=== PATIENT | female | born 1975 ===

== ENCOUNTER 2017-08-01 10:30 | Emergency (ER) | payer OTHER ==
[2017-08-01 10:31] VITALS: BMI 21.9
[2017-08-01 10:44] VITALS: RESP 16; O2SAT 97
[2017-08-01] MEDS ORDERED: Sodium Chloride 0.9% 1,000 ML IV STA (11:06)
--- NOTE | 2017-08-01 11:31 | ED PDOC ---
Arrival/HPI - General Chief Complaint: Back Pain Time Seen by Provider: 08/01/17 11:02 Historian: Patient - History of Present Illness Narrative History of Present Illness (Text): 08/01/17 11:31 A 42 year old female presents to the emergency department complaining of 3 days history of left flank pain and subjective fever. Patient denies any vomiting, diarrhea, urinary symptoms, hematuria or any other complaints at this time. Time/Duration: Other (3 days) Symptom Onset: Sudden Symptom Course: Unchanged Activities at Onset: Rest Context: Home Past Medical History - Provider Review Nursing Documentation Reviewed: Yes - Infectious Disease Hx of Infectious Diseases: None - Psychiatric Hx Substance Use: No - Surgical History Hx Section: Yes Hx Tubal Ligation: Yes - Anesthesia Hx Anesthesia: Yes Hx Anesthesia Reactions: No Hx Malignant Hyperthermia: No Family/Social History - Physician Review Nursing Documentation Reviewed: Yes Family/Social History: No Known Family HX Smoking Status: Never Smoked Hx Alcohol Use: Yes Hx Substance Use: No Allergies/Home Meds Allergies/Adverse Reactions: Allergies No Known Allergies Allergy (Verified 08/01/17 10:44) Review of Systems - Physician Review All systems were reviewed & negative as marked: Yes - Review of Systems Constitutional: Fevers (subjective) Gastrointestinal: absent: Diarrhea, Vomiting Genitourinary Female: absent: Dysuria, Frequency, Hematuria Musculoskeletal: Other (left flank pain) Physical Exam Vital Signs Reviewed: Yes Vital Signs Temp Pulse Resp BP Pulse Ox 08/01/17 12:55 99.3 F 80 16 102/54 L 97 08/01/17 11:24 102.4 F H 08/01/17 10:42 99.6 F 100 H 16 107/63 97 Temperature: Afebrile Blood Pressure: Normal Pulse: Regular Respiratory Rate: Normal Appearance: Positive for: Well-Appearing, Non-Toxic, Comfortable Pain Distress: None Mental Status: Positive for: Alert and Oriented X 3 - Systems Exam Head: Present: Atraumatic, Normocephalic Pupils: Present: PERRL Extroacular Muscles: Present: EOMI Conjunctiva: Present: Normal Mouth: Present: Moist Mucous Membranes Neck: Present: Normal Range of Motion Respiratory/Chest: Present: Clear to Auscultation, Good Air Exchange. No: Respiratory Distress, Accessory Muscle Use Cardiovascular: Present: Regular Rate and Rhythm, Normal S1, S2. No: Murmurs Abdomen: Present: Normal Bowel Sounds. No: Tenderness, Distention, Peritoneal Signs Back: Present: Normal Inspection Upper Extremity: Present: Other (left flank tenderness). No: Cyanosis, Edema Lower Extremity: Present: Normal Inspection. No: Edema Neurological: Present: GCS=15, CN II-XII Intact, Speech Normal Skin: Present: Warm, Dry, Normal Color. No: Rashes Psychiatric: Present: Alert, Oriented x 3, Normal Insight, Normal Concentration Medical Decision Making ED Course and Treatment: 08/01/17 11:28 Impression: A 42 year old female with left flank pain. Plan: -- CT abd/pelvis -- labs -- Urinalysis -- IV fluids, Tylenol, Rocephin -- Reassess and disposition Prior Visits: Notes and results from previous visits were reviewed. Patient was last seen in the emergency department on 02/18/16 for evaluation of left sided lung pain. Progress Notes: 08/01/17 12:20 CT Abdomen and Pelvis without intravenous contrast Creator : Demetrius Patel MD IMPRESSION: Multiple bilateral nonobstructing renal calculi. No evidence of hydronephrosis or hydro ureter. No ureteral calculus. No other significant abnormality. Leaving Against Medical Advice (AMA): The patient is choosing to leave against medical advice. I have personally explained to the patient that choosing to do so may result in permanent bodily harm or . I have discussed at great length that without further evaluation and monitoring there may be unforeseen circumstances and/or deterioration causing permanent bodily harm or as a result of their choice. The patient is alert, oriented, and shows the mental capacity to make clear decisions regarding the patients health care at this time. The patient continues to wish to leave against medical advice. The patient has been advised that they should return to the emergency room immediately if they change their mind at any time, or if their condition begins to change or worsen in any way. 08/01/17 15:06 pt with sepsis, leukocytosis, non obstructing stones. requested pt to be admitted for iv antibiotics urology eval. pt refuses, states she "needs to go to work". advised of risk and worsening. - Lab Interpretations Lab Results: 08/01/17 11:30 08/01/17 11:30 Lab Results 08/01/17 11:30: Sodium 135, Potassium 4.2, Chloride 104, Carbon Dioxide 20 L, Anion Gap 15, BUN 11, Creatinine 0.9, Est GFR ( Amer) > 60, Est GFR (Non- Af Amer) > 60, Random Glucose 98, Calcium 8.8, Total Bilirubin 0.8, AST 23, ALT 31, Alkaline Phosphatase 125, Total Protein 7.3, Albumin 3.7, Globulin 3.6, Albumin/Globulin Ratio 1.1, Lipase 19 L 08/01/17 11:30: PT 14.8 H, INR 1.34 H, APTT 27.4 08/01/17 11:30: WBC 15.8 H, RBC 4.33, Hgb 12.2, Hct 35.6 L, MCV 82.2, MCH 28.2, MCHC 34.3, RDW 15.0 H, Plt Count 240, MPV 10.3, Gran % 85.6 H, Lymph % (Auto) 5.0 L, [place] % (Auto) 9.2 H, Eos % (Auto) 0.1 L, Baso % (Auto) 0.1, Gran # 13.56 H, Lymph # 0.8 L, [place] # 1.5 H, Eos # 0.0, Baso # 0.02, Neutrophils % (Manual) 85 H, Band Neutrophils % 3 H, Lymphocytes % (Manual) 10 L, Monocytes % (Manual) 2, Platelet Evaluation Normal, Anisocytosis (manual) Slight 08/01/17 11:20: Urine Color Light yellow, Urine Appearance Sl cloudy, Urine pH 7.5, Ur Specific [place] 1.015, Urine Protein Trace H, Urine Glucose (UA) Negative, Urine Ketones >=80, Urine Blood Small H, Urine Nitrate Positive H, Urine Bilirubin Negative, Urine Urobilinogen 0.2, Ur Leukocyte Esterase Small H , Urine RBC 1 - 3, Urine WBC 15 - 20, Ur Epithelial Cells 6 - 8, Urine Bacteria Many, Urine HCG, Qual Negative I have reviewed the lab results: Yes - RAD Interpretation Radiology Orders: 08/01/17 11:36 ABD & PELVIS W/O PO OR IV CONT [CT] Stat - Medication Orders Current Medication Orders: Discontinued Medications Acetaminophen (Tylenol 325mg Tab) 975 mg PO STAT STA Stop: 08/01/17 11:07 Last Admin: 08/01/17 11:24 Dose: 975 mg MAR Pain/Vitals Document 12/21/17 11:24 INEZ (Rec: 08/01/17 11:24 [place] [facility] [id number] Pain Reassessment Is This A Pain ReAssessment? Yes Presence of Pain Presence of Pain Yes Pain Scale Used Pain Scale Used Numeric Location Left, Right or Bilateral Left Pain Location Body Site FLANK Description Sharp Intensity 8 Scale Used Numeric Vitals Temperature (97.6 F-99.6 F) 102.4 F Temperature Source Rectal Sodium Chloride (Sodium Chloride 0.9%) 1,000 mls @ 1,000 mls/hr IV .Q1H STA Stop: 08/01/17 12:05 Last Admin: 08/01/17 11:30 Dose: 1,000 mls/hr eMAR Start Stop Document 08/01/17 11:30 INEZ (Rec: 08/01/17 11:32 INE[place] [facility] [id number] Intravenous Solution Start Date 08/01/17 Start Time 11:30 End Date 08/01/17 End time 12:30 Total Infusion Time 60 Ceftriaxone Sodium (Rocephin 2 Gm Ivpb) 2 gm in 100 mls @ 100 mls/hr IVPB STAT STA PRN Reason: Protocol Stop: 08/01/17 12:37 Last Admin: 08/01/17 12:06 Dose: 100 mls/hr eMAR Start Stop Document 08/01/17 12:06 INEZ (Rec: 08/01/17 12:06 INEZ [facility] [id number][place] Intravenous Solution Start Date 08/01/17 Start Time 12:06 End Date 08/01/17 End time 13:06 Total Infusion Time 60 - Scribe Statement The provider has reviewed the documentation as recorded by the Luanne Mason Provider Scribe Attestation: All medical record entries made by the Scribandrea were at my direction and personally dictated by me. I have reviewed the chart and agree that the record accurately reflects my personal performance of the history, physical exam, medical decision making, and the department course for this patient. I have also personally directed, reviewed, and agree with the discharge instructions and disposition. Disposition/Present on Arrival - Present on Arrival Any Indicators Present on Arrival: No History of DVT/PE: No History of Uncontrolled Diabetes: No Urinary Catheter: No History of Decub. Ulcer: No History Surgical Site Infection Following: None - Disposition Have Diagnosis and Disposition been Completed?: Yes Diagnosis: Pyelonephritis Disposition: AGAINST MEDICAL ADVICE Disposition Time: 01:00 Condition: UNKNOWN Discharge Instructions (ExitCare): Kidney Stones (GEN), Acute Pyelonephritis ( ED), Against Medical Advice (ED) Additional Instructions: you are declining admission to the hospital. you are able to return to the er with any worsening symptoms or concern. Prescriptions: Cefpodoxime [Vantin] 100 mg PO BID #20 tab Ibuprofen [Motrin Tab] 600 mg PO Q8 PRN #20 tab PRN Reason: Pain, Moderate (4-7) Referrals: [facility] [Outside] - [place] up with primary [facility] [place] [facility] [place] - Follow up with primary [facility] [Outside] - Follow up with primary Socru[facility] Santiago Remaria a, [Primary Care Provider] - Follow up with primary Esequiel Harden MD [Staff Provider] - Follow up with primary Forms: [employer] (Turkish)
[2017-08-01 11:35] LABS: PH,URINE 7.5 (4.7-8.0); URINE BILIRUBIN NEGATIVE (NEGATIVE); URINE BLOOD SMALL (NEGATIVE); URINE GLUCOSE (UA) NEGATIVE (NEGATIVE); URINE KETONE >=80 mg/dL (NEGATIVE); URINE LEUKOCYTE ESTERASE SMALL Leu/uL (NEGATIVE); URINE PROTEIN TRACE mg/dL (<30 mg/dL); URINE UROBILINOGEN 0.2 E.U./dL (<1 E.U./dL)
[2017-08-01 11:37] LABS: URINE APPEARANCE SL CLOUDY (CLEAR); URINE COLOR LIGHT YELLOW (YELLOW)
[2017-08-01] MEDS ORDERED: cefTRIAXone 2 GM IN NS 2 GM/100 ML BAG IVPB STA (11:38)
[2017-08-01 11:40] LABS: URINE BACTERIA MANY (NEG); URINE WBC 15 - 20 /hpf (0-6)
[2017-08-01 11:46] LABS: BASO # 0.02 K/mm3 (0.0-2.0); BASO % 0.1 % (0.0-3.0); EOS % 0.1 % (1.5-5.0); GRAN # 13.56 (1.4-6.5); GRAN % 85.6 % (50.0-68.0); HEMATOCRIT 35.6 % (36.0-48.0); LYMPH # 0.8 (1.2-3.4); MEAN CELL VOLUME 82.2 fl (80.0-105.0); MEAN CORPUSCULAR HEMOGLOBIN 28.2 pg (25.0-35.0); MEAN CORPUSCULAR HGB CONC 34.3 g/dl (31.0-37.0); MEAN PLATELET VOLUME 10.3 fl (7.0-11.0); MONO # 1.5 (0.1-0.6); MONO % 9.2 % (1.0-6.0); PLATELET COUNT 240 10^3/uL (120.0-450.0); WHITE BLOOD COUNT 15.8 10^3/ul (4.5-11.0)
[2017-08-01 11:55] LABS: ALB/GLOB RATIO 1.1 (1.1-1.8); ALKALINE PHOSPHATASE 125 U/L (38-126); ALT/SGPT 31 U/L (7-56); AST/SGOT 23 U/L (14-36); BILIRUBIN,TOTAL 0.8 mg/dL (0.2-1.3); BLOOD UREA NITROGEN 11 mg/dL (7-21); CALCIUM 8.8 mg/dL (8.4-10.5); CARBON DIOXIDE 20 mmol/L (21-33); CHLORIDE 104 mmol/L (98-107); GFR AFRICAN-AMERICAN > 60; GLUCOSE,RANDOM 98 mg/dL (70-110); LIPASE 19 U/L (23-300); POTASSIUM 4.2 mmol/L (3.6-5.0); SODIUM 135 mmol/L (132-148); TOTAL PROTEIN 7.3 g/dL (5.8-8.3)
[2017-08-01 12:01] LABS: INR 1.34 (0.93-1.08)
[2017-08-01 12:02] LABS: PARTIAL THROMBOPLASTIN TIME 27.4 Seconds (25.1-36.5)
[2017-08-01 12:16] LABS: NEUTROPHIL 85 % (50.0-70.0)
[2017-08-01 12:17] LABS: ANISOCYTOSIS SLIGHT; BAND 3 % (0-2); PLATELET ESTIMATE NORMAL (NORMAL)
--- NOTE | 2017-08-01 12:19 | CT ---
PROCEDURE: CT Abdomen and Pelvis without intravenous contrast HISTORY: left sided flank pain COMPARISON: None. TECHNIQUE: Without contrast.. Contrast Dose: 0 Radiation dose: Total exam DLP = 249.14 mGy-cm. This CT exam was performed using one or more of the following dose reduction techniques: Automated exposure control, adjustment of the mA and/or kV according to patient size, and/or use of iterative reconstruction technique. FINDINGS: LOWER THORAX: Unremarkable. LIVER: Unremarkable. No gross lesion or ductal dilatation. GALLBLADDER AND BILE DUCTS: Unremarkable. PANCREAS: Unremarkable. No gross lesion or ductal dilatation. SPLEEN: Unremarkable. ADRENALS: Unremarkable. No mass. KIDNEYS AND URETERS: Bilateral renal calculi, nonobstructing. Right lower pole 6 mm calculus. Multiple left renal calculi. Upper pole 8 mm as measured from coronal images. Mid left kidney, 4 mm. Multiple tiny lower pole calculi. No hydronephrosis. No renal mass. No ureteral calculus. VASCULATURE: Unremarkable. No aortic aneurysm. BOWEL: Unremarkable. No obstruction. No gross mural thickening. APPENDIX: Unremarkable. Normal appendix. PERITONEUM: Trace fluid in cul-de-sac, nonspecific. LYMPH NODES: Unremarkable. No enlarged lymph nodes. BLADDER: Nondistended REPRODUCTIVE: Unremarkable uterus BONES: No acute fracture. OTHER FINDINGS: None. IMPRESSION: Multiple bilateral nonobstructing renal calculi. No evidence of hydronephrosis or hydro ureter. No ureteral calculus. No other significant abnormality.
[2017-08-01 12:56] VITALS: BP 102/54; PULSE 80; TEMP 99.3
== END 2017-08-01 13:11 | disposition left against medical advice (07) ==
LOC: ED 10:30
DX: N12 Tubulo-interstitial nephritis, not specified as acute or chronic (principal)
CPT/HCPCS: 74176; 80053; 81001; 83690; 84703; 85025; 85610; 85730; 96361; 96365; 99284; J0696; J7040

== ENCOUNTER 2017-09-03 08:50 | Emergency (ER) | payer OTHER ==
[2017-09-03 08:50] VITALS: BMI 21.9
[2017-09-03 09:09] VITALS: RESP 18; O2SAT 100
[2017-09-03] MEDS ORDERED: Sodium Chloride 0.9% 1,000 ML IV STA (09:36)
--- NOTE | 2017-09-03 09:54 | ED PDOC ---
Arrival/HPI - History of Present Illness Time/Duration: Prior to Arrival Symptom Onset: Sudden Symptom Course: Unchanged, [place] Quality: Aching, Pressure, Cramping Severity Level: Mild, Moderate Activities at Onset: Rest Context: Home <Kyleigh Bailey - Last Filed: 09/03/17 18:01> <Prince Hood - Last Filed: 09/03/17 18:23> - General Chief Complaint: Back Pain Time Seen by Provider: 09/03/17 09:04 - History of Present Illness Narrative History of Present Illness (Text): 09/03/17 09:52 Pt is a 42 year old F who presents to the emergency department complaining of 1 day history of bilateral flank pain and subjective fever. Patient denies any vomiting, diarrhea, urinary symptoms, hematuria or any other complaints at this time. Pt was assessed and treated for acute pyelonephritis 08/01/17 and left AMA at that time. (Kyleigh Bailey) Past Medical History - Provider Review Nursing Documentation Reviewed: Yes - Travel History Have you recently traveled outside [place] w/in the past 3 mons?: No - Infectious Disease Hx of Infectious Diseases: None - Genitourinary/Gynecological Hx Urinary Tract Infection: Yes - Psychiatric Hx Substance Use: No - Surgical History Hx Section: Yes Hx Tubal Ligation: Yes - Anesthesia Hx Anesthesia: Yes Hx Anesthesia Reactions: No Hx Malignant Hyperthermia: No <Kyleigh Bailey - Last Filed: 09/03/17 18:01> Family/Social History - Physician Review Nursing Documentation Reviewed: Yes Family/Social History: No Known Family HX Smoking Status: Never Smoked Hx Alcohol Use: Yes Hx Substance Use: No <Kyleigh Bailey - Last Filed: 09/03/17 18:01> Allergies/Home Meds <Kyleigh Bailey - Last Filed: 09/03/17 18:01> <Prince Hood - Last Filed: 09/03/17 18:23> Allergies/Adverse Reactions: Allergies No Known Allergies Allergy (Verified 09/03/17 09:09) Review of Systems - Review of Systems Constitutional: Normal. absent: Fatigue, Weight Change, Fevers, Night Sweats, Other Eyes: Normal ENT: Normal. absent: Hearing Changes, Tinnitus, TMJ Pain, Voice Changes, Sore Throat, Rhinorrhea, Epistaxis, Sinus Congestion, Other Respiratory: absent: Normal, SOB, Cough, Sputum, Wheezing, Other Cardiovascular: Normal. absent: Chest Pain, Palpitations, Edema, Calf Pain, S[place] , Orthopnea, SY, Syncope, Other Gastrointestinal: Abdominal Pain, Nausea, Appetite Changes Musculoskeletal: Back Pain <Kyleigh Bailey Last Filed: 09/03/17 18:01> Physical Exam Vital Signs Reviewed: Yes Temperature: Afebrile Blood Pressure: Normal Pulse: Regular Respiratory Rate: Normal Appearance: Positive for: Non-Toxic, Uncomfortable Pain Distress: Moderate Mental Status: Positive for: Alert and Oriented X 3 - Systems Exam Head: Present: Atraumatic, Normocephalic Pupils: Present: PERRL Extroacular Muscles: Present: EOMI Conjunctiva: Present: Normal Mouth: Present: Moist Mucous Membranes Neck: Present: Normal Range of Motion Respiratory/Chest: Present: Clear to Auscultation, Good Air Exchange. No: Respiratory Distress, Accessory Muscle Use Cardiovascular: Present: Regular Rate and Rhythm, Normal S1, S2. No: Murmurs Abdomen: Present: Tenderness (right and left lower quadrants with low back referral), Normal Bowel Sounds. No: Distention, Peritoneal Signs, Rebound, Guarding, McBurney's Point Tender, Rovsing's Sign Present, Hernias, Feeding Tubes, Ostomy Tubes, Mass/Organomegaly, Scars, Other Back: Present: Normal Inspection. No: CVA Tenderness, Midline Tenderness, Paraspinal Tenderness, Pain with Leg Raise, Decubitus Ulcer, Other Upper Extremity: Present: Normal Inspection. No: Cyanosis, Edema Lower Extremity: Present: Normal Inspection. No: Edema Neurological: Present: GCS=15, CN II-XII Intact, Speech Normal Skin: Present: Warm, Dry, Normal Color. No: Rashes Psychiatric: Present: Alert, Oriented x 3, Normal Insight, Normal Concentration <Kyleigh Bailey - Last Filed: 09/03/17 18:01> Vital Signs Temp Pulse Resp BP Pulse Ox 09/03/17 12:11 98.7 F 70 18 119/72 100 09/03/17 09:07 98.2 F 79 18 114/81 100 Medical Decision Making <Kyleigh Bailey - Last Filed: 09/03/17 18:01> <Prince Hood - Last Filed: 09/03/17 18:23> ED Course and Treatment: Pt is a 42 year old F who presents to the emergency department complaining of 1 day history of bilateral flank pain and subjective fever. Plan: NS IVF 1L over 60 mins Labs: cbc, cmp, UA Abdominal and Pelvic CT w/o contrast Pt was started on Rocephin ivp and given toradol 15 mg for pain management Discussed with pt concern for frequency of UTIs and findings on CT and UA today ; strongly encouraged pt to see an BAR EXAMINER for a complete workup s pt has not had her menses for many months. Pt dispo'd home on Macrobid 100mg po BID x 7 days and take ibuprofen for pain control 09/03/17 18:00 (Kyleigh Bailey) - Lab Interpretations Lab Results: 09/03/17 10:15 09/03/17 09:34 Lab Results 09/03/17 10:15: WBC 8.7 D, RBC 4.58, Hgb 13.0, Hct 37.6, MCV 82.1, MCH 28.4, MCHC 34.6, RDW 15.7 H, Plt Count 194, MPV 11.1 H, Gran % 71.1 H, Lymph % (Auto) 13.4 L, [place] % (Auto) 13.6 H, Eos % (Auto) 1.6, Baso % (Auto) 0.3, Gran # 6.18, Lymph # 1.2, [place] # 1.2 H, Eos # 0.1, Baso # 0.03 09/03/17 09:51: Urine Color Yellow, Urine Appearance Sl cloudy, Urine pH 6.5, Ur Specific [place] 1.015, Urine Protein 30 H, Urine Glucose (UA) Negative, Urine Ketones Negative, Urine Blood Small H, Urine Nitrate Positive H, Urine Bilirubin Negative, Urine Urobilinogen 0.2, Ur Leukocyte Esterase Moderate H, Urine RBC 10 - 15, Urine WBC 25 - 30, Ur Epithelial Cells 6 - 8, Amorphous Sediment Moderate, Urine Bacteria Large, Urine Other Uyeast, Urine HCG, Qual Negative 09/03/17 09:34: Sodium 140, Potassium 4.0, Chloride 107, Carbon Dioxide 25, Anion Gap 12, BUN 8, Creatinine 0.8, Est GFR ( Amer) > 60, Est GFR (Non- Af Amer) > 60, Random Glucose 91, Calcium 9.3, Total Bilirubin 0.6, AST 40 H D, ALT 29, Alkaline Phosphatase 121, Total Protein 7.3, Albumin 4.0, Globulin 3.4, Albumin/Globulin Ratio 1.2 - RAD Interpretation Radiology Orders: 09/03/17 09:49 ABD & PELVIS W/O PO OR IV CONT [CT] Stat Results indicate no change since last scan; no uretal stones nor hydronephrosis (Lynn,Kyleigh L) - Medication Orders Current Medication Orders: Discontinued Medications Sodium Chloride (Sodium Chloride 0.9%) 1,000 mls @ 999 mls/hr IV .Q1H1M STA Stop: 09/03/17 10:36 Last Admin: 09/03/17 10:26 Dose: 999 mls/hr eMAR Start Stop Document 09/03/17 10:26 EQ (Rec: 09/03/17 10:[address] [facility] [id number] Intravenous Solution Start Date 09/03/17 Start Time 10:27 Sodium Chloride (Sodium Chloride 0.9%) 500 mls @ 999 mls/hr IV .Q31M STA Stop: 09/03/17 12:07 Last Admin: 09/03/17 11:44 Dose: 999 mls/hr eMAR Start Stop Document 09/03/17 11:44 EQ (Rec: 09/03/17 11:[address] [facility] [id number][place] Intravenous Solution Start Date 09/03/17 Start Time 11:44 Ceftriaxone Sodium (Rocephin 1 Gram Ivpb) 1 gm in 100 mls @ 200 mls/hr IVPB STAT STA PRN Reason: Protocol Stop: 09/03/17 12:15 Last Admin: 09/03/17 12:24 Dose: 200 mls/hr eMAR Start Stop Document 09/03/17 12:24 EQ (Rec: 09/03/17 12:[address] [facility] [id number]) Intravenous Solution Start Date 09/03/17 Start Time 12:24 Ketorolac Tromethamine (Toradol) 15 mg IVP STAT STA Stop: 09/03/17 11:37 Last Admin: 09/03/17 11:43 Dose: 15 mg MAR Pain Assessment Document 09/03/17 11:43 EQ (Rec: 09/03/17 11:[address] [facility] [id number][place] Pain Reassessment Is this a pain reassessment? No Sleep Is patient sleeping during reassessment? No Presence of Pain Presence of Pain Yes Pain Scale Used Pain Scale Used Numeric IVP Administration Document 09/03/17 11:43 EQ (Rec: 09/03/17 11:[address] [facility] [id number][place] Charges for Administration # of IVP Administrations 1 - PA / TECHNOLOGY AUDITOR / Resident Statement MD/DO has examined the patient and agrees with the treatment plan. <Prince Hood - Last Filed: 09/03/17 18:23> Disposition/Present on Arrival - Present on Arrival Any Indicators Present on Arrival: Yes History of DVT/PE: No History of Uncontrolled Diabetes: No Urinary Catheter: No History of Decub. Ulcer: No History Surgical Site Infection Following: None - Disposition Have Diagnosis and Disposition been Completed?: Yes Disposition Time: 12:15 Patient Plan: Discharge <Kyleigh Bailey - Last Filed: 09/03/17 18:01> <Prince Hood - Last Filed: 09/03/17 18:23> - Disposition Diagnosis: UTI (urinary tract infection) Disposition: HOME/ ROUTINE Condition: STABLE Discharge Instructions (ExitCare): Nitrofurantoin Combination (By mouth), Kidney Stones (ED), Urinary Tract Infection in Women (ED) Additional Instructions: Dear Patient, Please read the handouts that we have given you to assist with your current condition of a Urinary Tract Infection We recommend that you get plenty of reest and fluids when you go home. If you require pain and fever management, you can take Ibuprofen 600 mg by mouth every 4-6 hrs as needed after eating a meal. If you experience any new symptoms or fever, chills, vomiting, abdominal pain, return to the ER immediately. Otherwise, follow up with your doctor or BAR EXAMINER in a few days ascertain why you are having frequent infections. All the best in your recovery! Prescriptions: Nitrofurantoin Macrocrystals [Macrobid] 100 mg PO BID 7 Days #14 cap Referrals: Keena Ernandez, [Primary Care Provider] - Follow up with primary Forms: [employer] (German)
[2017-09-03 10:17] LABS: BASO # 0.03 K/mm3 (0.0-2.0); BASO % 0.3 % (0.0-3.0); EOS # 0.1 (0.0-0.7); EOS % 1.6 % (1.5-5.0); GRAN # 6.18 (1.4-6.5); GRAN % 71.1 % (50.0-68.0); LYMPH # 1.2 (1.2-3.4); LYMPH % 13.4 % (22.0-35.0); MEAN CELL VOLUME 82.1 fl (80.0-105.0); MEAN CORPUSCULAR HEMOGLOBIN 28.4 pg (25.0-35.0); MEAN CORPUSCULAR HGB CONC 34.6 g/dl (31.0-37.0); MEAN PLATELET VOLUME 11.1 fl (7.0-11.0); MONO # 1.2 (0.1-0.6); MONO % 13.6 % (1.0-6.0); RBC 4.58 10^6/uL (3.5-6.1); RED CELL DISTRIBUTION WIDTH 15.7 % (11.5-14.5); WHITE BLOOD COUNT 8.7 10^3/ul (4.5-11.0)
[2017-09-03 10:40] LABS: PH,URINE 6.5 (4.7-8.0); URINE BILIRUBIN NEGATIVE (NEGATIVE); URINE BLOOD SMALL (NEGATIVE); URINE GLUCOSE (UA) NEGATIVE (NEGATIVE); URINE LEUKOCYTE ESTERASE MODERATE Leu/uL (NEGATIVE); URINE NITRATE POSITIVE (NEGATIVE); URINE PROTEIN 30 mg/dL (<30 mg/dL); URINE UROBILINOGEN 0.2 E.U./dL (<1 E.U./dL)
[2017-09-03 10:41] LABS: URINE COLOR YELLOW (YELLOW)
[2017-09-03 10:42] LABS: HCG,QUALITATIVE URINE NEGATIVE (NEGATIVE); URINE APPEARANCE SL CLOUDY (CLEAR)
--- NOTE | 2017-09-03 10:45 | CT ---
PROCEDURE: CT Abdomen and Pelvis without intravenous contrast HISTORY: H/O renal stones COMPARISON: CT 08/01/2017 TECHNIQUE: Without contrast.. Contrast Dose: Radiation dose: Total exam DLP = 260 mGy-cm. This CT exam was performed using one or more of the following dose reduction techniques: Automated exposure control, adjustment of the mA and/or kV according to patient size, and/or use of iterative reconstruction technique. FINDINGS: LOWER THORAX: Unremarkable. LIVER: Unremarkable. No gross lesion or ductal dilatation. GALLBLADDER AND BILE DUCTS: Unremarkable. PANCREAS: Unremarkable. No gross lesion or ductal dilatation. SPLEEN: Unremarkable. ADRENALS: Unremarkable. No mass. There are no ureteral stones and no evidence of hydronephrosis. KIDNEYS AND URETERS: There is no change in the appearance of bilateral renal stones. There is a 5 mm stone in the lower pole of the right kidney. There are several stones on the left side ranging in size from 2 mm to 5 mm in diameter. VASCULATURE: Unremarkable. No aortic aneurysm. BOWEL: Unremarkable. No obstruction. No gross mural thickening. APPENDIX: Unremarkable. Normal appendix. PERITONEUM: Unremarkable. No free fluid. No free air. LYMPH NODES: Unremarkable. No enlarged lymph nodes. BLADDER: Unremarkable. REPRODUCTIVE: Unremarkable. BONES: No acute fracture. OTHER FINDINGS: None. IMPRESSION: Nephrolithiasis unchanged from prior study. No evidence of ureteral stone or hydronephrosis
[2017-09-03 10:48] LABS: URINE BACTERIA LARGE (NEG); URINE WBC 25 - 30 /hpf (0-6)
[2017-09-03 10:49] LABS: URINE AMORPHOUS SEDIMENT MODERATE
[2017-09-03] MEDS ORDERED: Sodium Chloride 0.9% 500 ML IV STA (11:37)
[2017-09-03] MEDS ORDERED: cefTRIAXone 1 gm 1 GM/100 ML BAG IVPB STA (11:46)
[2017-09-03 12:05] LABS: ALB/GLOB RATIO 1.2 (1.1-1.8); ALT/SGPT 29 U/L (7-56); AST/SGOT 40 U/L (14-36); BLOOD UREA NITROGEN 8 mg/dL (7-21); CALCIUM 9.3 mg/dL (8.4-10.5); GFR AFRICAN-AMERICAN > 60; GFR NON-AFRICAN AMERICAN > 60
[2017-09-03 12:12] VITALS: BP 119/72; PULSE 70; TEMP 98.7
== END 2017-09-03 13:09 | disposition home or self-care (01) ==
LOC: ED 08:50
DX: N39.0 Urinary tract infection, site not specified (principal)
CPT/HCPCS: 74176; 80053; 81001; 84703; 85025; 87086; 96374; 99283; J0696; J1885; J7040